=== PATIENT | female | born 1975 | race Caucasian/White ===

== ENCOUNTER 2017-06-25 09:20 | Emergency (ER) | payer BC ==
[2017-06-25 09:28] VITALS: BP 140/67; BMI 27.4
--- NOTE | 2017-06-25 09:39 | DR.EXTPAIN ---
HPI - Time seen Time seen: 09:39 - PCP Primary Care Physician: mason - Complaint/Symptoms Chief Complaint Doctor Comments: Patient presents with complaint of right upper lateral thigh pain; onset four days ago w/o history of trauma. Muscle realaxants have not helped. Chief Complaint:: Patient c/o pain to right leg that started on Wednesday afternoon. Patient has seen Serina Diamond and had a Doppler done to r/o blood clots yesterday. Patient is scheduled for an MRI on wednesday. Patient has been placed on muscle relaxers and pain management without relief. Self Treatment fo Chief Complaint: meloxicam, tizanidine and oxycodone - Source History Provided: Patient - Mode of arrival Mode of Arrival: Ambulatory - Timing Onset of Chief Complaint: 06/21/17 PMH - PMH Past Medical History: Yes Past Medical History: Hypothyroidism Past Surgical History: Yes Past Surgical History Comment: ankle surgery,thyroid surgery - Family History History of Family Medical Conditions: Yes Family Medical History: Cancer - Social History Does patient currently use any type of tobacco product: No Have you used tobacco products in the last 12 months: No Type of Tobacco Use: None Does any household member use tobacco: No Alcohol Use: None Do you use any recreational Drugs:: No Lives With: Family Lives Where: Home - infectious screening In the last 2 months have you had wt loss of >10#?: NO Have you had fever, night sweats or hemotysis?: No Have you traveled outside the country in the last 6 months?: No Isolation: Standard ROS - Review of Systems Eyes: No Symptoms Reported ENTM: No Symptoms Reported Respiratoy: No Symptoms Reported Cardiovascular: No Symptoms Reported Gastrointestinal/Abdominal: No Symptoms Reported Genitourinary: No Symptoms Reported Neurological: No Symptoms Reported Musculoskeletal: Muscle Stiffness Integumentary: No Symptoms Reported Hematologic/Lymphatic: No Symptoms Reported Endocrine: No Symptoms Reported Psychiatric: No Symptoms Reported All Other Systems: Reviewed and Negative PE - Vital Signs Vitals: Temperature 99.7 F Pulse Rate 60 Respiratory Rate 20 Blood Pressure 140/67 O2 Sat by Pulse Oximetry 100 - General Limitations: No Limitations General Appearance: Alert, In No Apparent Distress - Head Head Exam: Normal Inspection, Atraumatic - Eyes Eye exam: Normal Appearance, PERRL, EOMI - ENT ENT Exam: Normal Exam - Neck Neck Exam: Normal Inspection, Full ROM - Chest Chest Inspection: Normal Inspection - Respiratory Respiratory Exam: Normal Lung Sounds Bilat Respiratory Exam: Bilateral Clear to Auscultation - Cardiovascular Cardiovascular Exam: Regular Rate - Abdominal Exam Abdominal Exam: Normal Inspection, Normal Bowel Sounds Abdominal Tenderness: negative: RUQ, RLQ, LUQ, LLQ, Epigastrium, Suprapubic, Diffuse, Mild, Moderate, Severe, Other - Extremities Extremities Exam: Normal Inspection, Full ROM - Upper Extremities Shoulder Exam: Normal Inspection Arm Exam: Normal Inspection Elbow Exam: Normal Inspection Forearm Exam: Normal Inspection Hand Exam: Normal Inspection Neuromotor Exam: Normal Exam Neurosensory Exam: Normal Exam Hand Tendon Exam: Flexor Digitorium Profundus (Location) Upper Ext. Vascular Exam: Capillary Refill - Lower Extremities Hip/Pelvis Exam: Normal Inspection Upper Leg Exam: Tenderness (inferior gleutus christo) Knee Exam: Normal Inspection, Full ROM Lower Leg Exam: Normal Inspection, Other (Right lower extremity arthropathy) Ankle Exam: Normal Inspection Foot/Toe Exam: Normal Inspection Neurovascular/Tendon Exam: Normal Capillary Refill Gait Exam: Observed and Normal - Back Back Exam: Normal Inspection - Neurological Neurological Exam: Alert, Oriented X3, CN II-XII Intact - Psychiatric Psychiatric Exam: Normal Affect - Skin Skin Exam: Warm, Dry Course - Reevaluation 1st: Improved ROR - XRAY XRAY Interpreted by: Radiologist (CT Lumbar Spine:L1-2: No evidence for compressive disc disease; L2-3: mild concentric disc bulging effaces the thecal sac and contributes to mild lateral recess narrowing bilaterally. The joints are normal. L3-4: mild concentric disc bulging effaces the thecal sac and contributes along with mild bilateral facet arthropathy to lateral recess narrowing bilaterally;L4-5: concentric disc bulging effaces the thecal sac and contributes along with mild bilateral facet arthropathy to mild lateral recess narrowing bilaterally;L5-S1:There is loss of disc height and disc degeneration with vacuum phenomenon present. Broad based disc bulging effaces the thecal sac and contributes along with spondylitic change to lateral recess and foraminal narrowing bilaterally more prominent on the right and left.) - Diagnosis Discharge Problem: Bulging of lumbar intervertebral disc, Disc degeneration with vacuum phenomenon , Lumbar disc height and degeneration L5-S - Discharge Plan Condition: Stable - Follow ups/Referrals Follow ups/Referrals: [facility],None [Primary Care Provider] - 3 days - Instructions
[2017-06-25] MEDS ORDERED: VALIUM INJ IM ONE (09:45)
--- NOTE | 2017-06-25 10:58 | CT ---
HISTORY: Right sciatica Study: CT lumbar spine without contrast Comparison: None Technique: Axial noncontrast images with coronal and sagittal reformats. Dose reduction procedures we re used with mA/kv adjusted for body size. Findings: The alignment is normal. The vertebral bodies are of average height. No compression fractures are doris ntified. The pedicles, spinous processes, and posterior elements appear intact as do the sacrum and S I joints. The disc levels are evaluated as follows: L1-2 level: No evidence for compressive disc disease. The neural foramina are patent. The joints are normal. L2-3 level: Mild concentric disc bulging effaces the thecal sac and contributes to mild lateral reces s narrowing bilaterally. The joints are normal. L3-4 level: Mild concentric disc bulging effaces the thecal sac and contributes along with mild bilat eral facet arthropathy to mild lateral recess narrowing bilaterally. L4-5 level: Concentric disc bulging effaces the thecal sac and contributes along with mild bilateral facet arthropathy to mild lateral recess narrowing bilaterally. L5-S1 level: There is loss of disc height and disc degeneration with vacuum phenomenon present. Broad -based disc bulging effaces the thecal sac and contributes along with spondylitic change to lateral r ecess and foraminal narrowing bilaterally more prominent on the right than the left. IMPRESSION: As above Reported By:
== END 2017-06-25 11:39 | disposition home or self-care (01) ==
LOC: ER 09:40
DX: M51.06 Intervertebral disc disorders with myelopathy, lumbar region (principal); M51.36 Other intervertebral disc degeneration, lumbar region
CPT/HCPCS: 72131; 96372; 99282; 99283; J3360

== ENCOUNTER → 2017-06-28 | Outpatient (CLI) | payer BC ==
--- NOTE | 2017-06-28 14:48 | MRI ---
HISTORY: Low back pain radiating into right lower extremity Study: MRI lumbar spine without contrast Comparison: CT lumbar spine performed on 06/25/2017 Technique: Multiplanar multi-sequence MRI of the lumbar spine was obtained. Sagittal T1, sagittal T2 , and stir weighted images, axial T1, and axial T2 images were obtained. Findings: Imaging of the lumbar spine demonstrates normal vertebral alignment. There is no spondylolisthesis. V ertebral body height is maintained throughout. No acute or chronic compression fracture is visualized . Multilevel disc desiccation is noted. There is moderate loss of disc space height at the L5-S1 leve l with associated advanced degenerative endplate change. Mild reactive edema associated with degenera tive endplate changes visualized at L5-S1 level as well. There is also mild reactive edema within the L1, L2, and L3 superior endplates. The conus terminates at the L2 level. Evaluation of the pre and p aravertebral soft tissues is unremarkable. T12 -- L1: The T12-L1 level is unremarkable. L1 -- L2: The L1-L2 level is unremarkable. L2 -- L3: At the L2-L3 level there is mild facet hypertrophy without significant canal stenosis or ne uroforaminal compromise. L3 -- L4: At the L3-L4 level there is facet hypertrophy as well as mild broad-based disc ridging, res ulting in no significant canal stenosis or neuroforaminal compromise. L4 -- L5: At the L4-L5 level there is facet hypertrophy as well as a mild broad-based disc bulge, res ulting in very mild bilateral neuroforaminal compromise but no significant canal stenosis. A small an nular fissure is noted within the left lateral aspect of the disc at this level. L5 -- S1: At the L5-S1 level there is a right paracentral and right lateral recess disc extrusion whi ch extends inferiorly along the posterior aspect of the S1 vertebral body. A sequestered disc fragmen t is not excluded. The extruded disc measures at least 13 mm in transverse dimension by 17 mm in cran iocaudal dimension and is exhibiting significant mass effect upon the right S1 nerve root, which is p osteriorly and laterally displaced. There is also mass effect upon the right lateral aspect of the th ecal sac by the disc extrusion or sequestered fragment. This disc extrusion superimposed upon a mild broad-based disc bulge as well as facet hypertrophy, resulting very mild bilateral neuroforaminal com promise but no significant canal stenosis. IMPRESSION: 1. L5-S1 large right paracentral and lateral recess disc extrusion which extends inferiorly along the posterior aspect of the S1 vertebral body and exhibits significant mass effect upon the right S1 ner ve root, which is posteriorly and laterally displaced. A sequestered disc fragment is not entirely ex cluded. 2. Otherwise mild degenerative disc disease and facet arthropathy as detailed above. Reported By:
== END ==
LOC: RAD 12:36 → EDUNIT# 13:00
PROVIDERS: ATTEND Nurse Practitioner Family
DX: M54.5 Low back pain (principal); M54.17 Radiculopathy, lumbosacral region
CPT/HCPCS: 72148